=== PATIENT | female | born 1995 | race Caucasian/White ===

== ENCOUNTER 2021-06-28 23:33 | Emergency (ER) | payer MEDICAID, SELFPAY ==
[2021-06-29 00:06] VITALS: BP 106/70; PULSE 100; RESP 22; TEMP 36.8; O2SAT 98; BMI 23.9
[2021-06-29 00:58] VITALS: BP 98/68; PULSE 72; RESP 16; TEMP 37.2; O2SAT 98
--- NOTE | 2021-06-29 01:10 | ED.ANXIETY ---
HPI - Anxiety General Chief Complaint: Anxiety Stated Complaint: HAND AND FEET CRAMPING Time Seen by Provider: 06/29/21 01:05 Source: patient and family Mode of arrival: ambulatory Limitations: no limitations History of Present Illness HPI narrative: 25-year-old female came in for evaluation of hyperventilation, bilateral hand spasm. This is a 25-year-old female no known history of anxiety, came in for episode of being hyperventilated and anxious with spasm in both hands, patient Has been going through stressful event, sister attempt suicide, patient is , but patient declined any depression or suicidal or homicidal ideation. No hallucination. no history of anxiety. Related Data Allergies Allergy/AdvReac Type Severity Reaction Status Date / Time famotidine [From PEPCID] Allergy Intermediate DIFFICULTY Unverified 04/23/20 19:42 BREATHING Review of Systems Review of Systems: All other systems are reviewed and are negative Constitutional: Reports as per HPI and Reports no additional constitutional complaints Eyes: Reports as per HPI and Reports no additional eye complaints Reports system reviewed and no additional complaints, except as documented Cardiovascular: Reports as per HPI and Reports no additional cardiovascular complaints Respiratory: Reports as per HPI and Reports no additional respiratory complaints Gastrointestinal: Reports as per HPI and Reports no additional gastrointestinal complaints Genitourinary: Reports no additional female genitourinary complaints Musculoskeletal: Reports no additional musculoskeletal complaints Skin/Breast: Reports system reviewed and no additional complaints, except as docu Psychiatric: Reports no additional psychiatric complaints Endocrine: Reports no additional endocrine complaints Hematologic/Lymphatic: Reports no additional hematologic/lymphatic complaints Allergic/Immunologic: Reports no additional allergic/immunologic complaints Reports system reviewed and no additional complaints, except as documented and Reports Abnormal speech present [facility] Past Medical History Medical History No known health problems Social History Social History Advance Directives: No Advance Directives Information Provided: No Patient : No Physical Exam Vital Signs: Vital Signs: Last Vital Signs Temp 99.2 F 06/29/21 02:11 Pulse 79 06/29/21 02:11 Resp 13 06/29/21 02:11 BP 101/64 06/29/21 02:11 Pulse Ox 99 06/29/21 02:11 Body Mass Index 23.9 vital signs have been reviewed as appeared to be correct. Blood pressure normal. Heart rate normal. Respiration rate normal. Temperature normal. Oxygen saturation normal. Appearance: Alert. Oriented X3. No acute distress. Head: Normal external exam. Normocephalic. Atraumatic. No Newman signs noted. No raccoon eyes noted Eyes: PERRLA. EOMI. Conjunctiva and sclera normal. Eyelids normal. ENT: TM's Normal. Pharynx normal. Uvula midline. Moist mucous membranes. No trismus noted. No drooling noted. No muffled voice noted. Neck: Normal inspection. Neck supple. FROM. No adenopathy. Thyroid Normal. No meningeal signs. No neck mass noted. CVS: Normal heart rate and rhythm. Heart sound normal. No murmurs noted. Pulses normal throughout. Respiratory: No respiratory distress. Painless inspiration. Breath sounds normal. No wheezes/rales/rhonchi noted. Chest nontender. No accessory muscle usage noted or decreased air movement noted. Abdomen: Soft and nontender. Bowel sounds normal in all 4 quadrants. No distention noted. No organomegaly noted. No visible injury noted. Back: No CVA tenderness. Full range of motion noted. Skin: Skin warm and dry. Normal skin color. Normal skin turgor. No rashes/lesions/lacerations noted. Extremities: No lower extremity edema. Extremities exhibit normal range of motion. Extremities nontender. Neuro: Oriented X 3. Cranial nerve exam: II-XII are grossly intact No motor deficit. No sensory deficit. Reflexes normal. Course Course Course Narrative: assessment and plan. 25-year-old female came in for evaluation of upper extremities stiffness after. Of hyperventilation, however patient declined any anxiety or history of it. Patient was given Ativan and Benadryl, unremarkable labs, physical exam is normal, patient feels more relaxed, no more muscle stiffness. Patient did not give urine for . Stable vital signs. Was reassured and discharged home to follow-up with PCP. MDM - Anxiety Lab Data Attestation: I reviewed the patient's lab results. Result diagrams: 06/29/21 01:39 06/29/21 01:39 Labs: Lab Results 06/29/21 06/29/21 06/29/21 Range/Units 01:39 01:39 01:39 WBC 2.9 L (4.8-10.8) X10*3/uL RBC 4.56 (4.20-5.50) X10*6/uL Hgb 12.8 (12.0-16.0) g/dl Hct 38.0 (37.0-47.0) % MCV 83.3 (80.0-98.0) fL MCH 28.1 (27.0-33.0) pg MCHC 33.7 (31.0-35.0) g/dl RDW 14.1 (11.0-16.0) % Plt Count 169 (160-400) X10*3/uL MPV 10.1 (9.4-12.3) fL Immature Gran % (Auto) 0.0 (0.0-0.4) % Neut % (Auto) 61.9 (45-73) % Lymph % (Auto) 29.3 (20-40) % [place] % (Auto) 8.8 (2-11) % Eos % (Auto) 0.0 (0-4) % Baso % (Auto) 0.0 (0-2) % Lymph # (Auto) 0.9 L (1.2-4.9) X10*3/uL [place] # (Auto) 0.3 (0.1-1.2) X10*3/uL Eos # (Auto) 0.0 (0.0-0.4) X10*3/uL Baso # (Auto) 0.0 (0.0-0.2) X10*3/uL Abs Immat Gran (auto) 0.00 (0.00-0.03) X10*3/uL Absolute Neuts (auto) 1.8 L (2.0-8.3) x10*3/uL Absolute Nucleated RBC 0.000 (0.0-0.012) X10*3/uL Nucleated RBC % (auto) 0.0 (0.0-0.2) /100WBC Sodium 143 (135-145) mmol/L Potassium 3.4 (3.3-5.1) mmol/L Chloride 111 H (96-108) mmol/L Carbon Dioxide 21 L (22-29) mmol/L Anion Gap 14 (12-20) BUN 6 L (9-16) mg/dL Creatinine 0.70 (0.5-1.4) mg/dL Estim Creat Clear Calc 101.6 Estimated GFR > 60 Random Glucose 89 (60-115) mg/dL Calcium 8.7 (8.4-10.2) mg/dL Magnesium 2.1 (1.6-2.6) mg/dL Total Bilirubin 0.3 (0.0-1.0) mg/dL Direct Bilirubin 0.2 (0.0-0.5) mg/dL AST 44 H (5-31) U/L ALT 14 (0-31) U/L Alkaline Phosphatase 62 (39-117) U/L Total Creatine Kinase (26-140) U/L Troponin I High Sens < 3.5 (<3.5-17.0) ng/L Total Protein 6.9 (6.5-8.0) g/dL Albumin 4.2 (3.5-5.0) g/dL Lipase 21 (8-78) U/L // Range/Units 01:39 WBC (4.8-10.8) X10*3/uL RBC (4.20-5.50) X10*6/uL Hgb (12.0-16.0) g/dl Hct (37.0-47.0) % MCV (80.0-98.0) fL MCH (27.0-33.0) pg MCHC (31.0-35.0) g/dl RDW (11.0-16.0) % Plt Count (160-400) X10*3/uL MPV (9.4-12.3) fL Immature Gran % (Auto) (0.0-0.4) % Neut % (Auto) (45-73) % Lymph % (Auto) (20-40) % [place] % (Auto) (2-11) % Eos % (Auto) (0-4) % Baso % (Auto) (0-2) % Lymph # (Auto) (1.2-4.9) X10*3/uL [place] # (Auto) (0.1-1.2) X10*3/uL Eos # (Auto) (0.0-0.4) X10*3/uL Baso # (Auto) (0.0-0.2) X10*3/uL Abs Immat Gran (auto) (0.00-0.03) X10*3/uL Absolute Neuts (auto) (2.0-8.3) x10*3/uL Absolute Nucleated RBC (0.0-0.012) X10*3/uL Nucleated RBC % (auto) (0.0-0.2) /100WBC Sodium (135-145) mmol/L Potassium (3.3-5.1) mmol/L Chloride (96-108) mmol/L Carbon Dioxide (22-29) mmol/L Anion Gap (12-20) BUN (9-16) mg/dL Creatinine (0.5-1.4) mg/dL Estim Creat Clear Calc Estimated GFR Random Glucose (60-115) mg/dL Calcium (8.4-10.2) mg/dL Magnesium (1.6-2.6) mg/dL Total Bilirubin (0.0-1.0) mg/dL Direct Bilirubin (0.0-0.5) mg/dL AST (5-31) U/L ALT (0-31) U/L Alkaline Phosphatase (39-117) U/L Total Creatine Kinase 115 (26-140) U/L Troponin I High Sens (<3.5-17.0) ng/L Total Protein (6.5-8.0) g/dL Albumin (3.5-5.0) g/dL Lipase (8-78) U/L Discharge Plan Discharge Clinical Impression: Hyperventilation, Muscle stiffness Patient Disposition: Home, Self-Care Instructions: Hyperventilation (ED) Referrals: Physician,Unknown J [Primary Care Provider] - 2 days
[2021-06-29] MEDS: LORazepam 1 MG TABLET PO (01:24)
[2021-06-29] MEDS: diphenhydrAMINE HCL 25 MG TABLET PO (01:24)
[2021-06-29] MEDS: 0.9 % Sodium Chloride 1,000 ML 999 ML IVCONT (01:24)
[2021-06-29 01:44] LABS: MANUAL DIFF FLAG NO
[2021-06-29 01:49] LABS: Hemoglobin 12.8 g/dl (12.0-16.0); Lymphocytes Absolute Auto 0.9 X10*3/uL (1.2-4.9); Lymphocytes Percent Auto 29.3 % (20-40); Mean Corpuscular HGB Conc 33.7 g/dl (31.0-35.0); Mean Corpuscular Hemoglobin 28.1 pg (27.0-33.0); Mean Corpuscular Volume 83.3 fL (80.0-98.0); Mean Platelet Volume 10.1 fL (9.4-12.3); Monocytes Absolute Auto 0.3 X10*3/uL (0.1-1.2); Monocytes Percent Auto 8.8 % (2-11); Neutrophils Absolute Auto 1.8 x10*3/uL (2.0-8.3); Neutrophils Percent Auto 61.9 % (45-73); Platelet Count 169 X10*3/uL (160-400); Red Blood Count 4.56 X10*6/uL (4.20-5.50); Red Cell Distribution Width 14.1 % (11.0-16.0); White Blood Count 2.9 X10*3/uL (4.8-10.8)
[2021-06-29 02:06] LABS: Alanine Aminotransferase 14 U/L (0-31); Albumin Level 4.2 g/dL (3.5-5.0); Alkaline Phosphatase 62 U/L (39-117); Anion Gap 14 (12-20); Aspartate Amino Transferase 44 U/L (5-31); Bilirubin Direct 0.2 mg/dL (0.0-0.5); Bilirubin Total 0.3 mg/dL (0.0-1.0); Blood Urea Nitrogen 6 mg/dL (9-16); Calcium 8.7 mg/dL (8.4-10.2); Carbon Dioxide 21 mmol/L (22-29); Chloride 111 mmol/L (96-108); Creatinine Clr Calc Pharmacy 101.6; Estimated Glomerular Filt Rate > 60; Glucose Random 89 mg/dL (60-115); Lipase 21 U/L (8-78); Magnesium 2.1 mg/dL (1.6-2.6); Potassium 3.4 mmol/L (3.3-5.1); Sodium 143 mmol/L (135-145); Total Protein 6.9 g/dL (6.5-8.0)
[2021-06-29 02:07] LABS: Troponin-I High Sensitivity < 3.5 ng/L (<3.5-17.0)
[2021-06-29 02:11] VITALS: BP 101/64; PULSE 79; RESP 13; TEMP 37.3; O2SAT 99
== END 2021-06-29 04:01 | disposition home or self-care (01) ==
PROVIDERS: Emergency Provider Emergency Medicine
DX: R06.4 Hyperventilation (principal); M25.60 Stiffness of unspecified joint, not elsewhere classified; F41.1 Generalized anxiety disorder; F43.0 Acute stress reaction; Z79.899 Other long term (current) drug therapy
CPT/HCPCS: 36415; 80048; 80076; 82550; 83690; 83735; 84484; 85025; 96360; 99283; 99284; Q0163

== ENCOUNTER 2022-11-02 02:30 | Emergency (ER) | payer MEDICAID, SELFPAY ==
--- NOTE | 2022-11-02 | ECG_ITS ---
Test Reason : ABD PAIN Blood Pressure : / mmHG Vent. Rate : 088 BPM Atrial Rate : 088 BPM P-R Int : 156 ms QRS Dur : 090 ms QT Int : 404 ms P-R-T Axes : 078 071 047 degrees QTc Int : 488 ms Normal sinus rhythm Normal ECG When compared with ECG of 28-FEB-2019 06:21, Nonspecific T wave abnormality has replaced inverted T waves in Inferior leads Referred By: Maikol Ledezma Electronically Signed By:SARAY GOMEZ
[2022-11-02 02:54] VITALS: BP 122/76; PULSE 91; RESP 16; TEMP 36.5; O2SAT 99; BMI 23.7
--- NOTE | 2022-11-02 03:33 | ED.ABDPAIN ---
HPI - Abdominal Pain General Chief Complaint: Abdominal Pain Stated Complaint: Abd pain/Nausea/Diarrhea Time Seen by Provider: 11/02/22 03:20 Source: patient Mode of arrival: ambulatory Limitations: no limitations History of Present Illness HPI narrative: Patient with nausea and diarrhea for last 1 week having watery stool 5 to 7 times a day , with some amount of blood last 2 days noticed dark. stool watery patient not take any Pepto-Bismol no significant abdominal pain no history of any ulcer Related Data Previous Rx's Medication Instructions Recorded loperamide 2 mg tablet (Imodium 2 mg PO Q6H PRN loose stool #14 11/02/22 A-D) tabs ondansetron 4 mg disintegrating 4 mg PO Q6-8H PRN nausea and 11/02/22 tablet vomiting #7 tabs Allergies Allergy/AdvReac Type Severity Reaction Status Date / Time famotidine [From PEPCID] Allergy Intermediate DIFFICULTY Verified 11/02/22 02:59 BREATHING Review of Systems Review of Systems Yes all other systems are reviewed and are negative PMFSH Past Medical History Medical History No known health problems Social History Social History Advance Directives: No Advance Directives Information Provided: No Physical Exam ED Vital Signs: Vital Signs - 24 hr 11/02/22 02:54 Temperature 97.7 F Pulse Rate 91 Respiratory Rate 16 Blood Pressure 122/76 Pulse Oximetry 99 Oxygen Delivery Method Room Air BMI result Body Mass Index 23.7 Appearance: Alert. Oriented X3. No acute distress. Eyes: No pallor or icterus ENT: Pharynx normal. Oral Mucosa moist Neck: Normal inspection. Neck supple. CVS: Normal heart rate and rhythm. Pulses normal. Respiratory: No respiratory distress. Equal air entry bilateral, no wheezing/rales/rhonchi Abdomen: Soft and nontender. Bowel sounds are present, no mass palpable, no CVA tenderness Skin: Skin warm and dry. Normal skin color. Normal skin turgor. Extremities: No lower extremity edema. No calf tenderness Neuro: Oriented X 3. No motor deficit. Medical Decision Making Medical Decision Making MDM Narrative: Patient with acute gastroenteritis feeling much better after IV fluids Lab Data [facility] Lab Attestation statement: I reviewed the patient's lab results. 11/02/22 03:32 11/02/22 03:32 Labs: Lab Results 11/02/22 11/02/22 11/02/22 Range/Units 03:26 03:26 03:32 WBC 5.4 (4.8-10.8) X10*3/uL RBC 4.95 (4.20-5.50) X10*6/uL Hgb 13.9 (12.0-16.0) g/dl Hct 40.9 (37.0-47.0) % MCV 82.6 (80.0-98.0) fL MCH 28.1 (27.0-33.0) pg MCHC 34.0 (31.0-35.0) g/dl RDW 12.7 (11.0-16.0) % Plt Count 231 D (160-400) X10*3/uL MPV 9.3 L (9.4-12.3) fL Immature Gran % (Auto) 0.2 (0.0-0.4) % Neut % (Auto) 59.3 (45-73) % Lymph % (Auto) 30.6 (20-40) % [place] % (Auto) 8.4 (2-11) % Eos % (Auto) 1.1 (0-4) % Baso % (Auto) 0.4 (0-2) % Lymph # (Auto) 1.6 (1.2-4.9) X10*3/uL [place] # (Auto) 0.5 (0.1-1.2) X10*3/uL Eos # (Auto) 0.1 (0.0-0.4) X10*3/uL Baso # (Auto) 0.0 (0.0-0.2) X10*3/uL Abs Immat Gran (auto) 0.01 (0.00-0.03) X10*3/uL Absolute Neuts (auto) 3.2 (2.0-8.3) x10*3/uL Absolute Nucleated RBC 0.000 (0.0-0.012) X10*3/uL Nucleated RBC % (auto) 0.0 (0.0-0.2) /100WBC Sodium (135-145) mmol/L Potassium (3.3-5.1) mmol/L Chloride (96-108) mmol/L Carbon Dioxide (22-29) mmol/L Anion Gap (12-20) BUN (9-16) mg/dL Creatinine (0.5-1.4) mg/dL Estim Creat Clear Calc Estimated GFR Random Glucose (60-115) mg/dL Calcium (8.4-10.2) mg/dL Total Bilirubin (0.0-1.0) mg/dL AST (5-31) U/L ALT (0-31) U/L Alkaline Phosphatase (39-117) U/L Total Protein (6.5-8.0) g/dL Albumin (3.5-5.0) g/dL Lipase (8-78) U/L Urine Color Yellow Urine Appearance Clear Urine pH 6.5 (5.0-9.0) Ur Specific [place] <= 1.005 (1.005-1.025) Urine Protein Negative (Neg-Trace) mg/dL Urine Glucose (UA) Negative (Negative) mg/dL Urine Ketones Negative (Negative) mg/dL Urine Blood Trace H (Negative) Urine Nitrite Negative (Negative) Ur Leukocyte Esterase Small (1+) H (Negative) Urine RBC 0-2 (0-2) /HPF Urine WBC 6-10 H (0-5) /HPF Ur Squamous Epith Cells 0-2 (0-2) /HPF Urine Bacteria Trace (None Seen) Hyaline Casts 0-2 (0-2) /LPF Urine Test NEGATIVE (NEGATIVE) 11/02/22 Range/Units 03:32 WBC (4.8-10.8) X10*3/uL RBC (4.20-5.50) X10*6/uL Hgb (12.0-16.0) g/dl Hct (37.0-47.0) % MCV (80.0-98.0) fL MCH (27.0-33.0) pg MCHC (31.0-35.0) g/dl RDW (11.0-16.0) % Plt Count (160-400) X10*3/uL MPV (9.4-12.3) fL Immature Gran % (Auto) (0.0-0.4) % Neut % (Auto) (45-73) % Lymph % (Auto) (20-40) % [place] % (Auto) (2-11) % Eos % (Auto) (0-4) % Baso % (Auto) (0-2) % Lymph # (Auto) (1.2-4.9) X10*3/uL [place] # (Auto) (0.1-1.2) X10*3/uL Eos # (Auto) (0.0-0.4) X10*3/uL Baso # (Auto) (0.0-0.2) X10*3/uL Abs Immat Gran (auto) (0.00-0.03) X10*3/uL Absolute Neuts (auto) (2.0-8.3) x10*3/uL Absolute Nucleated RBC (0.0-0.012) X10*3/uL Nucleated RBC % (auto) (0.0-0.2) /100WBC Sodium 142 (135-145) mmol/L Potassium 3.3 (3.3-5.1) mmol/L Chloride 107 (96-108) mmol/L Carbon Dioxide 25 (22-29) mmol/L Anion Gap 13 (12-20) BUN 8 L (9-16) mg/dL Creatinine 0.70 (0.5-1.4) mg/dL Estim Creat Clear Calc 99.8 Estimated GFR > 60 Random Glucose 107 (60-115) mg/dL Calcium 9.5 D (8.4-10.2) mg/dL Total Bilirubin 0.3 (0.0-1.0) mg/dL AST 39 H (5-31) U/L ALT 13 (0-31) U/L Alkaline Phosphatase 58 (39-117) U/L Total Protein 6.9 (6.5-8.0) g/dL Albumin 4.2 (3.5-5.0) g/dL Lipase 30 (8-78) U/L Urine Color Urine Appearance Urine pH (5.0-9.0) Ur Specific [place] (1.005-1.025) Urine Protein (Neg-Trace) mg/dL Urine Glucose (UA) (Negative) mg/dL Urine Ketones (Negative) mg/dL Urine Blood (Negative) Urine Nitrite (Negative) Ur Leukocyte Esterase (Negative) Urine RBC (0-2) /HPF Urine WBC (0-5) /HPF Ur Squamous Epith Cells (0-2) /HPF Urine Bacteria (None Seen) Hyaline Casts (0-2) /LPF Urine Test (NEGATIVE) Medications Administered Discontinued Medications Generic Name Dose Route Start Last Admin Trade Name Freq PRN Reason Stop Dose Admin Dicyclomine HCl 20 mg 11/02/22 03:40 11/02/22 04:24 Dicyclomine Hcl 10 Mg Capsule PO 11/02/22 03:41 20 mg ONCE ONE Administration Sodium Chloride 1,000 mls @ 999 mls/hr 11/02/22 03:39 11/02/22 04:25 Ns IV 11/02/22 04:39 999 mls/hr .Q1H1M ONE Administration Loperamide HCl 2 mg 11/02/22 03:39 11/02/22 04:23 Loperamide Hcl 2 Mg Capsule PO 11/02/22 03:40 2 mg ONCE ONE Administration Ondansetron HCl 4 mg 11/02/22 03:39 11/02/22 04:19 Ondansetron Hcl 4 Mg/2 Ml Vial IVPUSH 11/02/22 03:40 4 mg ONCE ONE Administration Discharge Plan Discharge Clinical Impression: Gastroenteritis Patient Disposition: Home, Self-Care Instructions: Gastroenteritis (ED) Additional Instructions: Drink plenty of fluid Imodium and nausea medicine as prescribed Follow-up with PCP if not better Prescriptions: New loperamide [Imodium A-D] 2 mg tablet 2 mg PO Q6H PRN (Reason: loose stool) Qty: 14 0RF ondansetron 4 mg tablet,disintegrating 4 mg PO Q6-8H PRN (Reason: nausea and vomiting) Qty: 7 0RF
[2022-11-02 03:37] LABS: Basophils Percent Auto 0.4 % (0-2); Eosinophils Absolute Auto 0.1 X10*3/uL (0.0-0.4); Eosinophils Percent Auto 1.1 % (0-4); Hematocrit 40.9 % (37.0-47.0); Hemoglobin 13.9 g/dl (12.0-16.0); Imm Gran Abs Auto 0.01 X10*3/uL (0.00-0.03); Imm Gran Pct Auto 0.2 % (0.0-0.4); Lymphocytes Absolute Auto 1.6 X10*3/uL (1.2-4.9); Lymphocytes Percent Auto 30.6 % (20-40); MANUAL DIFF FLAG NO; Mean Corpuscular Hemoglobin 28.1 pg (27.0-33.0); Mean Corpuscular Volume 82.6 fL (80.0-98.0); Mean Platelet Volume 9.3 fL (9.4-12.3); Monocytes Absolute Auto 0.5 X10*3/uL (0.1-1.2); Monocytes Percent Auto 8.4 % (2-11); Neutrophils Absolute Auto 3.2 x10*3/uL (2.0-8.3); Neutrophils Percent Auto 59.3 % (45-73); Platelet Count 231 X10*3/uL (160-400); Red Blood Count 4.95 X10*6/uL (4.20-5.50); Red Cell Distribution Width 12.7 % (11.0-16.0); White Blood Count 5.4 X10*3/uL (4.8-10.8)
[2022-11-02 03:43] LABS: Appearance Urine Clear; Color Urine Yellow; Glucose Urine UA Negative (Negative); Leukocyte Esterase Urine Small (1+) (Negative); Nitrite Urine Negative (Negative); PH 6.5 (5.0-9.0); Specific Gravity - Urine <= 1.005 (1.005-1.025); UMIC TRIGGER UACC YES; Urine Blood Trace (Negative); Urine Ketones Negative (Negative); Urine Protein Negative (Neg-Trace)
[2022-11-02 03:44] LABS: UPreg QC Valid YES; Urine Pregnancy NEGATIVE (NEGATIVE)
[2022-11-02 03:50] LABS: Bacteria Urine Trace (None Seen); Hyaline Casts Urine 0-2 /LPF (0-2); RBC Urine 0-2 /HPF (0-2); Squamous Epithelial Cell Urine 0-2 /HPF (0-2); UACC Culture Trigger YES
[2022-11-02 03:55] LABS: Alanine Aminotransferase 13 U/L (0-31); Albumin Level 4.2 g/dL (3.5-5.0); Alkaline Phosphatase 58 U/L (39-117); Anion Gap 13 (12-20); Aspartate Amino Transferase 39 U/L (5-31); Bilirubin Total 0.3 mg/dL (0.0-1.0); Blood Urea Nitrogen 8 mg/dL (9-16); Calcium 9.5 mg/dL (8.4-10.2); Carbon Dioxide 25 mmol/L (22-29); Chloride 107 mmol/L (96-108); Creatinine Clr Calc Pharmacy 99.8; Estimated Glomerular Filt Rate > 60; Glucose Random 107 mg/dL (60-115); Lipase 30 U/L (8-78); Potassium 3.3 mmol/L (3.3-5.1); Sodium 142 mmol/L (135-145); Total Protein 6.9 g/dL (6.5-8.0)
[2022-11-02] MEDS: ondansetron HCL 4 MG/2 ML VIAL IVPUSH (04:19)
[2022-11-02] MEDS: Loperamide HCl 2 MG CAPSULE PO (04:23)
[2022-11-02] MEDS: Dicyclomine HCl 10 MG CAPSULE 20 MG PO (04:24)
[2022-11-02] MEDS: 0.9 % Sodium Chloride 1,000 ML 999 ML IV (04:25)
[2022-11-02 05:32] VITALS: BP 112/69; PULSE 78; RESP 17; TEMP 36.7; O2SAT 100
--- NOTE | 2022-11-02 05:53 | PC.NURSE ---
Pt A&Ox4, reports 6/10 intermittent upper ABD pain and diarrhea x 1 week, denies any sick contact or recent abx use. Non-tender to touch, + bowel sounds x 4. Last BM was prior to arrival. IV line placed, meds given as documented. Pt ambulatory with steady gait.
[2022-11-02 05:56] LABS: COVID-19 Test Negative (Negative); IDNOW Serial# BCCEAD1C
== END 2022-11-02 05:56 | disposition home or self-care (01) ==
PROVIDERS: Emergency Provider Internal Medicine
DX: K52.9 Noninfective gastroenteritis and colitis, unspecified (principal); Z20.822 Contact with and (suspected) exposure to COVID-19; Z20.828 Contact with and (suspected) exposure to other viral communicable diseases; Z79.899 Other long term (current) drug therapy
CPT/HCPCS: 36415; 80053; 81001; 81025; 83690; 85025; 87086; 87635; 93005; 96361; 96374; 99285; J2405

== ENCOUNTER 2024-11-27 05:19 | Emergency (ER) | payer OTHER, SELFPAY ==
--- NOTE | ~2024-11-27 | XR_ITS ---
CLINICAL HISTORY: dizzy, heart racing 1 view chest x-ray Comparison: None Findings: No consolidation or effusion. Normal size heart. No acute fracture. IMPRESSION: 1. No acute findings. This document has been electronically signed by: John Almaguer MD on 11/27/2024 06:29:42
[2024-11-27 05:23] VITALS: BP 105/57; PULSE 95; RESP 16; TEMP 36.5; O2SAT 97; BMI 26.8
--- NOTE | 2024-11-27 05:28 | ECG_ITS ---
Test Reason : CHEST PAIN Blood Pressure : */* mmHG Vent. Rate : 95 BPM Atrial Rate : 95 BPM P-R Int : 152 ms QRS Dur : 98 ms QT Int : 376 ms P-R-T Axes : 80 74 -25 degrees QTcB Int : 472 ms Normal sinus rhythm Cannot rule out Inferior infarct , age undetermined T wave abnormality, consider anterolateral ischemia Abnormal ECG When compared with ECG of 02-Nov-2022 04:32, T wave inversion now evident in Inferior leads T wave inversion now evident in Anterolateral leads Referred By: Generic ED Physician Electronically Signed By: SARAY GOMEZ
[2024-11-27 05:35] VITALS: BP 107/62; PULSE 91; RESP 19; TEMP 36.8; O2SAT 96
[2024-11-27 05:46] LABS: MANUAL DIFF FLAG NO
[2024-11-27 05:47] LABS: Basophils Percent Auto 0.2 % (0-2); Eosinophils Absolute Auto 0.1 X10*3/uL (0.0-0.4); Eosinophils Percent Auto 0.5 % (0-4); Hematocrit 41.8 % (37.0-47.0); Hemoglobin 13.9 g/dl (12.0-16.0); Imm Gran Abs Auto 0.02 X10*3/uL (0.00-0.03); Imm Gran Pct Auto 0.2 % (0.0-0.4); Lymphocytes Percent Auto 9.9 % (20-40); Mean Corpuscular HGB Conc 33.3 g/dl (31.0-35.0); Mean Corpuscular Hemoglobin 28.5 pg (27.0-33.0); Mean Corpuscular Volume 85.7 fL (80.0-98.0); Mean Platelet Volume 9.6 fL (9.4-12.3); Monocytes Absolute Auto 0.2 X10*3/uL (0.1-1.2); Monocytes Percent Auto 2.3 % (2-11); Neutrophils Absolute Auto 8.5 x10*3/uL (2.0-8.3); Neutrophils Percent Auto 86.9 % (45-73); Platelet Count 254 X10*3/uL (160-400); Red Blood Count 4.88 X10*6/uL (4.20-5.50); Red Cell Distribution Width 12.8 % (11.0-16.0); White Blood Count 9.8 X10*3/uL (4.8-10.8)
[2024-11-27 05:59] LABS: Anion Gap 20 (12-20); Blood Urea Nitrogen 14 mg/dL (9-16); Calcium 9.2 mg/dL (8.4-10.2); Carbon Dioxide 16 mmol/L (22-29); Chloride 106 mmol/L (96-108); Creatinine Clr Calc Pharmacy 111.8; Estimated Glomerular Filt Rate > 60; Glucose Random 93 mg/dL (60-115); Potassium 3.5 mmol/L (3.3-5.1); Sodium 138 mmol/L (135-145)
[2024-11-27 06:09] LABS: Troponin-I High Sensitivity < 2.7 ng/L (<3.5-17.0)
--- NOTE | 2024-11-27 07:21 | ED_ITS ---
HPI - General Adult General Chief complaint: Arrhythmia/Palpitations Stated complaint: nauseous/faint Time Seen by Provider: 11/27/24 07:20 History of Present Illness ED Provider: Elham VELA narrative: The patient is a 29-year-old female who is generally in good health. She is on no medications. She has an 8-month-old child that she is . She had an uncomplicated vaginal delivery 8 months ago. She was feeling well yesterday. She says that she woke up this morning at approximately 4 AM with a sense of her heart racing and palpitations. She also felt dizzy and nauseated and possibly dehydrated. She had a dry mouth. She drank some water and at 1st thought she was starting to feel somewhat better but then her symptoms returned and her brought her to the hospital. She was feeling fine yesterday. She is feeling somewhat better at the time that I am seeing her. Related Data Previous Rx's ?Medication ?Instructions ?Recorded loperamide 2 mg tablet (Imodium 2 mg PO Q6H PRN loose stool #14 11/02/22 A-D) tabs ondansetron 4 mg disintegrating 4 mg PO Q6-8H PRN nausea and 11/02/22 tablet vomiting #7 tabs Allergies Allergy/AdvReac Type Severity Reaction Status Date / Time famotidine [From PEPCID] Allergy Intermediate DIFFICULTY Verified 11/27/24 05:25 BREATHING Review of Systems 2 Review of Systems: Yes all other systems are reviewed and are negative [facility] Past Medical History Medical History No known health problems Social History Social History Alcohol intake: never Smoked in Last 30 Days: No Use of substances other than those prescribed or required for medical reasons: No Advance Directives: No Do you have a plan to hurt others: No Plan Patient : No Physical Exam ED Vital Signs: Vital Signs - 24 hr 11/27/24 05:23 11/27/24 05:35 11/27/24 10:55 Temperature 97.7 F 98.2 F 98.2 F Pulse Rate 95 91 84 Respiratory Rate 16 19 18 Blood Pressure 105/57 L 107/62 105/70 Pulse Oximetry 97 96 98 Oxygen Delivery Method Room Air Room Air Room Air BMI result Body Mass Index 26.8 Const Other: The patient was awake, alert, pleasant, cooperative. She does not appear in obvious distress. Orientation/consciousness: patient oriented x3 HENMT Other: Face is symmetrical, mucous membranes moist. Eyes General: appearance normal, both eyes and all related structures Pupils: Equal, round and reactive pupils present EOM: EOMs intact bilaterally Neck Neck: Yes normal visual inspection, Yes full ROM, Yes no lymphadenopathy and Yes no JVD Resp Effort & Inspection: normal respiratory effort Auscultation: clear to auscultation bilaterally Cardio Rate: regular rate Rhythm: regular rhythm Heart sounds: S1 normal heart sound present and S2 normal heart sound present GI Other: Abdomen is soft and nontender Skin Other: Skin is pale and dry Neuro General: patient oriented x3, gait normal, tone normal, moves all extremities, no focal motor deficits and CN's II-XI intact bilaterally Cranial nerves: Yes Equal, round and reactive pupils present Extrem General: Yes no pedal edema and Yes no calf tenderness Medications Administered Discontinued Medications Generic Name Dose Route Start Last Admin Trade Name Freq PRN Reason Stop Dose Admin Sodium Chloride 1,000 mls @ 999 mls/hr 11/27/24 07:45 11/27/24 08:48 Ns IV 11/27/24 08:45 Infused .Q1H1M KARIN Infusion Medical Decision Making Medical Decision Making [facility] Narrative: The patient is an ordinarily healthy 29-year-old female who had abrupt onset of symptoms early this morning. The symptoms included a sense of her heart racing, palpitations, dizziness, nausea, dry mouth, weakness, and fatigue. She also had some bilateral hand numbness during the episode. She is currently . She had an uneventful vaginal delivery 8 months ago. Clinically the patient was doing better spontaneously. An EKG was done that shows some nonspecific ST and T-wave changes. However troponins are normal and a D-dimer is normal. Additionally her chest x-ray is normal. Her white count is normal with a white count of 9.8. 86.9% neutrophils. Chemistries show a carbon dioxide of 16. Normal renal function. The patient was given 1 L of normal saline. She was observed. She had no recurrence of her symptoms. She seemed to be feeling better. I was somewhat surprised that she had a carbon dioxide of 16 and that she had a lot of ketones in her urine but given that she looks quite well, her symptoms had entirely resolved, and her vital signs were quite unremarkable I felt that she was appropriate for discharge for further observation at home. She should return if worse. Lab Data 11/27/24 05:41 11/27/24 05:41 Labs: Lab Results 11/27/24 11/27/24 11/27/24 Range/Units 05:41 07:29 09:23 WBC 9.8 (4.8-10.8) X10*3/uL RBC 4.88 (4.20-5.50) X10*6/uL Hgb 13.9 (12.0-16.0) g/dl Hct 41.8 (37.0-47.0) % MCV 85.7 (80.0-98.0) fL MCH 28.5 (27.0-33.0) pg MCHC 33.3 (31.0-35.0) g/dl RDW 12.8 (11.0-16.0) % Plt Count 254 (160-400) X10*3/uL MPV 9.6 (9.4-12.3) fL Immature Gran % (Auto) 0.2 (0.0-0.4) % Neut % (Auto) 86.9 H (45-73) % Lymph % (Auto) 9.9 L (20-40) % [place] % (Auto) 2.3 (2-11) % Eos % (Auto) 0.5 (0-4) % Baso % (Auto) 0.2 (0-2) % Lymph # (Auto) 1.0 L (1.2-4.9) X10*3/uL [place] # (Auto) 0.2 (0.1-1.2) X10*3/uL Eos # (Auto) 0.1 (0.0-0.4) X10*3/uL Baso # (Auto) 0.0 (0.0-0.2) X10*3/uL Abs Immat Gran (auto) 0.02 (0.00-0.03) X10*3/uL Absolute Neuts (auto) 8.5 H (2.0-8.3) x10*3/uL Absolute Nucleated RBC 0.000 (0.0-0.012) X10*3/uL Nucleated RBC % (auto) 0.0 (0.0-0.2) /100WBC D-Dimer High Sensitivty Cancelled Sodium 138 (135-145) mmol/L Potassium 3.5 (3.3-5.1) mmol/L Chloride 106 (96-108) mmol/L Carbon Dioxide 16 L (22-29) mmol/L Anion Gap 20 (12-20) BUN 14 (9-16) mg/dL Creatinine 0.69 (0.5-1.4) mg/dL Estim Creat Clear Calc 111.8 Estimated GFR > 60 Random Glucose 93 (60-115) mg/dL Calcium 9.2 (8.4-10.2) mg/dL Magnesium 2.0 (1.6-2.6) mg/dL Total Bilirubin 1.1 H (0.0-1.0) mg/dL Direct Bilirubin 0.3 (0.0-0.5) mg/dL AST 53 H (5-31) U/L ALT 17 (0-31) U/L Alkaline Phosphatase 76 (39-117) U/L Troponin I High Sens < 2.7 < 2.7 (<3.5-17.0) ng/L Total Protein 7.6 (6.5-8.0) g/dL Albumin 4.6 (3.5-5.0) g/dL Urine Color Yellow Urine Appearance Clear Urine pH 5.5 (5.0-9.0) Ur Specific [place] 1.015 (1.005-1.025) Urine Protein Negative (Neg-Trace) mg/dL Urine Glucose (UA) Negative (Negative) mg/dL Urine Ketones >=160 (Negative) mg/dL Urine Blood Negative (Negative) Urine Nitrite Negative (Negative) Ur Leukocyte Esterase Negative (Negative) Urine Test NEGATIVE (NEGATIVE) 11/27/24 Range/Units 09:33 WBC (4.8-10.8) X10*3/uL RBC (4.20-5.50) X10*6/uL Hgb (12.0-16.0) g/dl Hct (37.0-47.0) % MCV (80.0-98.0) fL MCH (27.0-33.0) pg MCHC (31.0-35.0) g/dl RDW (11.0-16.0) % Plt Count (160-400) X10*3/uL MPV (9.4-12.3) fL Immature Gran % (Auto) (0.0-0.4) % Neut % (Auto) (45-73) % Lymph % (Auto) (20-40) % [place] % (Auto) (2-11) % Eos % (Auto) (0-4) % Baso % (Auto) (0-2) % Lymph # (Auto) (1.2-4.9) X10*3/uL [place] # (Auto) (0.1-1.2) X10*3/uL Eos # (Auto) (0.0-0.4) X10*3/uL Baso # (Auto) (0.0-0.2) X10*3/uL Abs Immat Gran (auto) (0.00-0.03) X10*3/uL Absolute Neuts (auto) (2.0-8.3) x10*3/uL Absolute Nucleated RBC (0.0-0.012) X10*3/uL Nucleated RBC % (auto) (0.0-0.2) /100WBC D-Dimer High Sensitivty < 150 Sodium (135-145) mmol/L Potassium (3.3-5.1) mmol/L Chloride (96-108) mmol/L Carbon Dioxide (22-29) mmol/L Anion Gap (12-20) BUN (9-16) mg/dL Creatinine (0.5-1.4) mg/dL Estim Creat Clear Calc Estimated GFR Random Glucose (60-115) mg/dL Calcium (8.4-10.2) mg/dL Magnesium (1.6-2.6) mg/dL Total Bilirubin (0.0-1.0) mg/dL Direct Bilirubin (0.0-0.5) mg/dL AST (5-31) U/L ALT (0-31) U/L Alkaline Phosphatase (39-117) U/L Troponin I High Sens < 2.7 (<3.5-17.0) ng/L Total Protein (6.5-8.0) g/dL Albumin (3.5-5.0) g/dL Urine Color Urine Appearance Urine pH (5.0-9.0) Ur Specific [place] (1.005-1.025) Urine Protein (Neg-Trace) mg/dL Urine Glucose (UA) (Negative) mg/dL Urine Ketones (Negative) mg/dL Urine Blood (Negative) Urine Nitrite (Negative) Ur Leukocyte Esterase (Negative) Urine Test (NEGATIVE) Discharge Plan Discharge Clinical Impression: Palpitations Patient Disposition: Home, Self-Care Additional Instructions: I am not certain exactly what was the cause of your symptoms early this morning but your testing in the emergency room is very reassuring. You may go about your normal activities. Please contact your regular doctor's office for a follow up appointment in the next couple of weeks. Return to the emergency room if you feel significantly worse. Prescriptions: No Action loperamide [Imodium A-D] 2 mg tablet 2 mg PO Q6H PRN (Reason: loose stool) Qty: 14 0RF ondansetron 4 mg tablet,disintegrating 4 mg PO Q6-8H PRN (Reason: nausea and vomiting) Qty: 7 0RF Referrals: Neelima Lester FNP [Primary Care Provider] - (episode of palpitations) Interventions: ED Discharge Assessment Last Done: 11/27/24 10:55 Discharge Date/Time: 11/27/24 10:55 Print Language: [place]
--- NOTE | 2024-11-27 07:32 | PC.NURSE ---
Pt ambulatory to restroom, states feeling better, urine sample collected.
[2024-11-27 07:39] LABS: Appearance Urine Clear; Color Urine Yellow; Glucose Urine UA Negative (Negative); Leukocyte Esterase Urine Negative (Negative); Nitrite Urine Negative (Negative); PH 5.5 (5.0-9.0); Specific Gravity - Urine 1.015 (1.005-1.025); Urine Blood Negative (Negative); Urine Ketones >=160 mg/dL (Negative); Urine Protein Negative (Neg-Trace)
[2024-11-27 07:41] LABS: UPreg QC Valid YES; Urine Pregnancy NEGATIVE (NEGATIVE)
[2024-11-27] MEDS: 0.9 % Sodium Chloride 1,000 ML 999 ML IV (07:41)
[2024-11-27 08:13] LABS: Alanine Aminotransferase 17 U/L (0-31); Albumin Level 4.6 g/dL (3.5-5.0); Alkaline Phosphatase 76 U/L (39-117); Aspartate Amino Transferase 53 U/L (5-31); Bilirubin Direct 0.3 mg/dL (0.0-0.5); Bilirubin Total 1.1 mg/dL (0.0-1.0); Total Protein 7.6 g/dL (6.5-8.0)
[2024-11-27 09:54] LABS: Troponin-I High Sensitivity < 2.7 ng/L (<3.5-17.0)
[2024-11-27 10:19] LABS: D Dimer High Sensitivity < 150 NG/ML
[2024-11-27 10:26] LABS: Troponin-I High Sensitivity < 2.7 ng/L (<3.5-17.0)
[2024-11-27 10:55] VITALS: BP 105/70; PULSE 84; RESP 18; TEMP 36.8; O2SAT 98
== END 2024-11-27 10:55 | disposition home or self-care (01) ==
PROVIDERS: Emergency Provider Emergency Medicine; PCP Nurse Practitioner Family
DX: R00.2 Palpitations (principal); R07.9 Chest pain, unspecified; R42 Dizziness and giddiness
CPT/HCPCS: 36415; 71045; 80048; 80076; 81003; 81025; 83735; 84484; 85025; 85379; 93005; 96360; 99284; 99285

== ENCOUNTER → 2024-11-27 05:28 | Outpatient (BNV) | payer OTHER, SELFPAY | PROVIDERS: PCP Nurse Practitioner Family; Visit Provider Radiology Diagnostic Radiology | DX: R42 Dizziness and giddiness (principal); R00.2 Palpitations | CPT/HCPCS: 71045 ==

== ENCOUNTER → 2024-11-27 05:28 | Outpatient (BNV) | payer OTHER, SELFPAY | PROVIDERS: Emergency Provider Emergency Medicine; PCP Nurse Practitioner Family; Visit Provider Internal Medicine | DX: R07.9 Chest pain, unspecified (principal) | CPT/HCPCS: 93010 ==

== ENCOUNTER 2025-04-02 18:05 | Emergency (ER) | payer OTHER, SELFPAY ==
--- NOTE | ~2025-04-02 | XR_ITS ---
CLINICAL HISTORY: fifth toe pain, ?dislocated 4 view left foot Comparison: None provided Findings: No fractures or dislocations. No significant arthritic change or erosions. No ankle effusion. No radiopaque foreign body. IMPRESSION: 1. No acute findings. This document has been electronically signed by: Kimmie Weaver MD on 04/02/2025 19:47:21
--- OUTSIDE RECORDS SUMMARY | 2025-04-02 15:30 | XMS_ITS | Encounter Summary ---
Author Organization [facility] Address [address] [place] [phone] Phone Care Team Providers Care Mortgage Analyst Name Role Phone Pcp, Unknown Primary Care Provider Unavailabl e Reason for Visit * Reason Comments Foot Injury Pt presents for eval of L foot pain s/p jamming great toe into stroller. Encounter Details Date Type Department Care Team (Late st Contact Info) Description 04/02/2025 3:30 PM EDT Office Visit [facility] [address] [id number] Hollie Trevino, CITY PLANNER [address] [place] [phone] [email or web address] Left foot pain (Primary Dx); Toe dislocation, left, initial encounter Social History Tobacco Use Types Packs/Day Years [...] on file documented as of this encounter Last Filed Vital Signs Vital Sign Reading Time Taken Comments Blood Pressure 110/63 04/02/2025 3:33 PM EDT Pulse 68 04/02/2025 3:33 PM EDT Temperature 36.3 C (97.3 F) 04/02/2025 3:33 PM EDT Respiratory Rate 16 04/02/2025 3:33 PM EDT Oxygen Saturation 99% 04/02/2025 3:33 PM EDT Inhaled Oxygen Concentration - - Weight - - Height - - Body Mass Index - - documented in this encounter Patient Instructions * Patient Instructions* Hollie Trevino CNP - 04/02/2025 3:30 PM EDT Unfortunately-in the office today you are much too uncomfortable for any intervention You can katlin tape the toe to the next toe and if you note that the pain is decreasing no further intervention is necessary, if you are unable to you may follow-up at the [facility] walk-in orthopedic clinic-see the pamphlet provided Rest, elevate the foot, apply ice and take [id number] ibuprofen We have provided an orthopedic shoe you should use this shoe for 7 to 10 days * Attachments The following attachments cannot be sent through Care Everywhere. * Dislocation: Toe (Citizen Of [place]) documented in this encounter Progress Notes * Hollie Trevino CNP - 04/02/2025 3:30 PM EDT Images from the original note were not included. Subjective: Patient ID: Tressa Godoy is a 29 y.o. female. 29-year-old female presents with pain on the top of the left foot into the 3rd, 4th and 5th toes. Patient states last evening she was wearing sandals and jammed the last 3 toes into the wheel of stroller. Patient states she tried ice and rest but she awoke this morning and notes that the pain is throbbing and when she walks the pain goes up into the calf. She has not noticed any bruising or skin changes. Review of Systems Constitutional: Negative for chills, diaphoresis and fever. Respiratory: Negative for cough and shortness of breath. Cardiovascular: Negative for chest pain. Allergic/Immunologic: Negative for immunocompromised state. Skin: Negative for pallor, persistent rash and wound. Musculoskeletal: Positive for joint pain (top left foot & 3rd-5th toes). Negative for joint swelling and myalgias. Gait problem: painful left foot to calf. Vitals: 04/02/25 1533 BP: 110/63 Pulse: 68 Resp: 16 Temp: 36.3 ??C (97.3 ??F) TempSrc: Temporal SpO2: 99% Objective: Physical Exam Vitals and nursing note reviewed. Constitutional: General: She is not in acute distress. Appearance: Normal appearance. She is normal weight. She is not ill-appearing, toxic-appearing or diaphoretic. HENT: Head: Normocephalic and atraumatic. Pulmonary: Effort: Pulmonary effort is normal. Musculoskeletal: General: Normal range of motion. Right lower leg: No edema. Left lower leg: No edema. Comments: Left calf soft No peripheral edema Full ankle range of motion, Achilles nontender and intact Positive pedal pulses Tenderness to any palpation 3rd and 4th 7 5th toes and top of left foot over the 3rd through 5th metatarsals Skin: General: Skin is warm and dry. Capillary Refill: Capillary refill takes less than 2 seconds. Findings: No bruising or erythema. Comments: No penetrating injuries, abrasions or bruising noted over left foot, ankle Neurological: General: No focal deficit present. Mental Status: She is alert and oriented to person, place, and time. Psychiatric: Mood and Affect: Mood normal. Behavior: Behavior normal. No results found for this visit on 04/02/25. Procedure: Procedures Assessment/Plan: Diagnosis Plan 1. Left foot pain XR Foot (Left) 2. Toe dislocation, left, initial encounter Assessment and Plan: 29-year-old female with no specific past medical history presents with left toe and foot pain. Yesterday she jammed the 3rd, 4th and 5th toes on large wheel of stroller Break in the skin, no bruising or abrasions Patient elevated the foot and has persistent discomfort and throbbing today Limb is neurovascularly intact Full ankle range of motion X-ray obtained and there is slight dislocation of the tuft of the left pinky toe Katlin taped and orthopedic shoe applied Patient is aware if pain persists may seek follow-up care at the walk-in [facility] Ortho clinic documented in this encounter Plan of Treatment Not on file documented as of this encounter Procedures Procedure Name Priority Date/Time Associated Diagnosis Comments XR FOOT 3 OR MORE VIEWS (LEFT) Urgent/patient waiting 04/02/2025 3:50 PM EDT Left foot pain documented in this encounter Results * XR FOOT 3 OR MORE VIEWS (LEFT) (04/02/2025 3:50 PM EDT) Anatomical Region Laterality Modality Foot Left Computed Radiogr aphy 04/02/2025 4:21 PM EDT Impressions 04/02/2025 4:23 PM EDT FINDINGS/IMPRESSION: No acute displaced fracture or dislocation. Joint spaces are grossly maintained. Alignments are grossly maintained. The soft tissues are unremarkable. Narrative 04/02/2025 4:23 PM EDT Procedure: XR FOOT 3 OR MORE VIEWS (LEFT) Referring clinician's provided indication for this examination in [facility]: 29 years Female presenting with Trauma; Jammed 3rd, 4th and 5th toes into stroller last evening, pain in the toes as well as on top of foot Comparison: None Procedure Note See Fernandez MD - 04/02/2025 Procedure: XR FOOT 3 OR MORE VIEWS (LEFT) Referring clinician's provided indication for this examination in [facility]: 29years Female presenting with Trauma; Jammed 3rd, 4th and 5th toes intostroller last evening, pain in the toes as well as on top of foot Comparison: None IMPRESSION: FINDINGS/IMPRESSION: No acute displaced fracture or dislocation. Joint spaces are grossly maintained. Alignments are grossly maintained. The soft tissues are unremarkable. us Hollie Trevino CITY PLANNER IMG XR LOWER EXTREMITY Florecita l Result documented in this encounter Visit Diagnoses Diagnosis Left foot pain- Primary Pain in soft tissues of limb Toe dislocation, left, initial encounter documented in this encounter Care Teams Mortgage Analyst Relationship Specialty Start Date End Date Pcp, Unknown PCP - General 04/02/25 documented as of this encounter Additional Source Comments The information contained in this document represents components of the legal health record. It is not the complete legal health record.[facility]
--- OUTSIDE RECORDS SUMMARY | 2025-04-02 15:44 | XMS_ITS | Encounter Summary ---
Author Organization [facility] Address [address] [place] [phone] Phone Care Team Providers Care Bar Captain Name Role Phone Pcp, Unknown Primary Care Provider Unavailabl e Encounter Details Date Type Department Care Team (Late st Contact Info) Description 04/02/2025 3:44 PM EDT Hospital Encounter [facility] [address] [place] [phone] Hollie Trevino CNP [address] [place] [address] Arrived Social History Tobacco Use Types Packs/Day Years [...] clinician's provided indication for this examination in [facility]: 29 years Female presenting with Trauma; Jammed 3rd, 4th and 5th toes into stroller last evening, pain in the toes as well as on top of foot Comparison: None Procedure Note See Fernandez MD - 04/02/2025 Procedure: XR FOOT 3 OR MORE VIEWS (LEFT) Referring clinician's provided indication for this examination in [facility]: 29years Female presenting with Trauma; Jammed 3rd, 4th and 5th toes intostroller last evening, pain in the toes as well as on top of foot Comparison: None IMPRESSION: FINDINGS/IMPRESSION: No acute displaced fracture or dislocation. Joint spaces are grossly maintained. Alignments are grossly maintained. The soft tissues are unremarkable. Hollie Trevino EMERGENCY ROOM ORDERLY IMG XR LOWER EXTREMITY Florecita l Result documented in this encounter Visit Diagnoses Not on filedocumented in this encounter Care Teams Bar Captain Relationship Specialty Start Date End Date Pcp, Unknown PCP - General 04/02/25 documented as of this encounter Additional Source Comments The information contained in this document represents components of the legal health record. It is not the complete legal health record.[facility]
[2025-04-02 18:57] VITALS: BP 100/70; PULSE 84; RESP 18; TEMP 36.8; O2SAT 99; BMI 26.7
--- NOTE | 2025-04-02 18:57 | ED_ITS ---
HPI - Extremity Injury (Lower) General Chief Complaint: Extremity Injury, Lower Stated Complaint: dislocated toe lt foot Time Seen by Provider: 04/02/25 20:06 Source: patient and RN notes reviewed Mode of arrival: ambulatory Limitations: no limitations History of Present Illness ED Provider: Bela Guzman PA-C HPI Narrative: This is a 29-year-old female who presents emergency department with complaints of left 5th toe pain after stubbing it last night. She went to an urgent care where she had x-rays performed and was told it was dislocated. She was told to follow-up with the orthopedist however states that she call the orthopedics and they do not accept her health insurance. She has been taking ibuprofen and Tylenol for pain with some relief. She was given a postop shoe and was told to katlin tape her toe. No other complaints or concerns at this time. Type of Injury: blunt Place: home Relieving factors: NSAID, cold therapy and immobilization Exacerbating factors: weight bearing, movement and palpation Context: direct blow Other symptoms: none Related Data Previous Rx's ?Medication ?Instructions ?Recorded loperamide 2 mg tablet (Imodium 2 mg PO Q6H PRN loose stool #14 11/02/22 A-D) tabs ondansetron 4 mg disintegrating 4 mg PO Q6-8H PRN naus ea and 11/02/22 tablet vomiting #7 tabs Allergies Allergy/AdvReac Type Severity Reaction Status Date / Time famotidine (From PEPCID) Allergy Intermediate DIFFICULTY Verified 04/02/25 18:58 BREATHING PMFSH Past Medical History Attestation statement: The following information was validated with the patient. Medical History No known health problems Social History Social History Alcohol intake: never Advance Directives: No Advance Directives Information Provided: Yes Do you have a plan to hurt others: No Plan Physical Exam Exam: Exam: General: Awake, alert, and oriented X3. No acute distress. HEENT: Normal inspection CVS: Normal heart rate and rhythm. Pulses normal. Respiratory: No respiratory distress Skin: Warm, dry, no rashes noted to exposed skin. Normal skin color. Normal skin turgor. Extremities: Left small toe with diffuse tenderness throughout, no ecchymosis, no obvious bony deformity or swelling. Neuro: Oriented X 3. No motor deficit. No sensory deficit. Vital Signs: Vital Signs: Last Vital Signs Temp 98.3 F 04/02/25 20:28 Pulse 84 04/02/25 20:28 Resp 18 04/02/25 20:28 BP 100/70 04/02/25 20:28 Pulse Ox 99 04/02/25 20:28 O2 Del Method Room Air 04/02/25 20:28 BMI result Body Mass Index 26.7 Medical Decision Making Medical Decision Making MDM Narrative: This is a [id number]-female, with no known medical problems, who presents to the ER with complaints of toe pain since last night. reports she stubbed her toe last night. Went to and was told her fifth toe is dislocated and was told to go to a specialist who her insurance does not cover. Pt in a post op shoe and katlin taped. Xrays repeated today which reveal no dislocation or fracture. Katlin taped toe, she already has a post op shoe. Advised RICE techniques, given return precautions. Will f/u with ortho as needed. Pt stable for d.c Differential Diagnosis Differential Diagnoses: The differential diagnosis associated with the presentation includes fx, dislocation, contusion, strain, sprain Radiology Impression Discussion of test interpretation with radiology: I have reviewed the ra diologist's reading. Radiologist Impression: [address] [address] XRay Report Signed Patient: Tressa Godoy MR#: [id number] : 1995 Acct:[id number] Age/Sex: 29 / F ADM Date: 04/02/25 Loc: HO.ED Attending Dr: Ordering Physician: Bela Guzman Date of Service: 04/02/25 Procedure(s): XR foot LT min 3V Accession Number(s): [id number] cc: Physician,None ; Bela Guzman~ CLINICAL HISTORY: fifth toe pain, ?dislocated 4 view left foot Comparison: None provided Findings: No fractures or dislocations. No significant arthritic change or erosions. No ankle effusion. No radiopaque foreign body. IMPRESSION: 1. No acute findings. This document has been electronically signed by: Kimmie Weaver MD on 04/02/2025 19:47:21 Dictated By: Kimmie Weaver MD Discharge Plan Discharge Clinical Impression: Contusion of fifth toe Patient Disposition: Home, Self-Care Instructions: Foot Contusion (ED) Additional Instructions: You were seen in the emergency department after injuring your toe. Your x-ray today does not show a dislocation or a fracture. There may be a small fracture that is not detected by the radiologist. Please ice, rest, and elevate your foot. Alternate between ibuprofen and Tylenol as needed for pain and symptoms. Please follow-up with the psychiatric clinical nurse specialist, call tomorrow to make an appointment. Prescriptions: No Action loperamide [Imodium A-D] 2 mg tablet 2 mg PO Q6H PRN (Reason: loose stool) Qty: 14 0RF ondansetron 4 mg tablet,disintegrating 4 mg PO Q6-8H PRN (Reason: nausea and vomiting) Qty: 7 0RF Referrals: [facility] [Provider Group] Interventions: ED Discharge Assessment Last Done: 04/02/25 20:28 Discharge Date/Time: 04/02/25 20:28 Print Language: Korean
--- NOTE | 2025-04-02 20:09 | PC.NURSE ---
John-taped toes (4th & 5th) on left foot. Patient already has supportive boot in place.
--- OUTSIDE RECORDS SUMMARY | 2025-04-02 20:16 | XMS_ITS | Clinical Summary ---
Author Organization [facility] Address [address] [place] [address] Care Team Providers Care Construction Equipment Operator Name Role Phone Unavailable Primary Care Provider Unavailabl e Surgical History Surgery Date Site/Laterality Comments APPENDECTOMY PROCEDURE: HISTORICAL APPENDECTOMY Medical History Medical History Date Comments Patient denies medical problems DX:Patient denies medical problems Family History Relation Name Status Comments Father Alive Mother Alive Social History Tobacco Use Types Packs/Day Years Used Date Smoking Tobacco: Never Smokeless Tobacco: Never Alcohol Use Standard Drinks/Week Comments Not Currently 0 (1 standard drink = 0.6 oz pur e alcohol) Comments Unknown Sex and Gender Information Value Date Recorded Sex Assigned at Not on file Legal Sex Female 8:44 AM EST Gender Identity Not on file Sexual Orientation Not on file Obstetrics History Plan of Treatment Health Maintenance Due Date Last Done Comments DTaP,Tdap,and Td Vaccines (1 - Tdap) 2014 Hepatitis B Vaccines (1 of 3 - 19+ 3-dose series) 2014 Cervical Cancer Screening: P ap Smear 2016 COVID-19 Vaccine ( - 2023-2 5 season) 2024 HIV Screening 05/14/2024 Hepatitis C Screening 05/14/2024 Social Influencers of Health Screening 05/14/2024 Depression Screening 08/07/2024 Influenza Vaccine (#1) 2025 HIB Vaccines Aged Out No longer eligi ble based on patient's age to complete this topic HPV Vaccines Aged Out No longer eligi ble based on patient's age to complete this topic Hepatitis A Vaccines Aged Out No long er eligible based on patient's age to complete this topic IPV Vaccines Aged Out No longer eligi ble based on patient's age to complete this topic MMR Vaccines Aged Out No longer eligi ble based on patient's age to complete this topic Meningococcal ACWY Vaccine Aged Out N o longer eligible based on patient's age to complete this topic Meningococcal B Vaccine Aged Out No l onger eligible based on patient's age to complete this topic Pneumococcal Vaccine: Pediat rics (0 to 5 Years) and At-Risk Patients (6 to 49 Years) Aged Out No longer eligible b ased on patient's age to complete this topic RSV Immunization Patients Un bethany 20 months Aged Out No longer eligible b ased on patient's age to complete this topic Varicella Vaccines Aged Out No longer eligible based on patient's age to complete this topic
--- OUTSIDE RECORDS SUMMARY | 2025-04-02 20:16 | XMS_ITS | Clinical Summary ---
Author Organization [facility] Address [address] [place] [phone] Phone Care Team Providers Care Veterinary Assistant Technician Name Role Phone Pcp, Unknown Primary Care Provider Unavailabl e Allergies Active Allergy Reactions Criticality Noted Date Comments Famotidine Shortness Of Breath High 11/20/2024 Throat closes up Medications No known medications Active Problems No known active problems Encounters Date Type Department Care Team Description 04/02/2025 3:44 PM EDT Hospital Encounter [facility] [address] [place] [id number] Hollie Trevino CNP Arrived 04/02/2025 3:30 PM EDT Office Visit [facility] at [address] [address] Hollie Trevino CNP Left foot pain (Primary Dx); Toe dislocation, left, initial encounter from Last 3 Months Social History Tobacco Use Types Packs/Day Years [...] on file Sexual Orientation Not on file Last Filed Vital Signs Vital Sign Reading Time Taken Comments Blood Pressure 110/63 04/02/2025 3:33 PM EDT Pulse 68 04/02/2025 3:33 PM EDT Temperature 36.3 C (97.3 F) 04/02/2025 3:33 PM EDT Respiratory Rate 16 04/02/2025 3:33 PM EDT Oxygen Saturation 99% 04/02/2025 3:33 PM EDT Inhaled Oxygen Concentration - - Weight - - Height - - Body Mass Index - - Plan of Treatment Health Maintenance Due Date Last Done Comments Adult Td,Tdap Booster 1995 DEPRESSION SCREENING 2007 SMOKING Hx and SMOKELESS TOB ACCO SCREENING 2008 HEPATITIS C SCREENING 2013 HIV ONE-TIME SCREENING (18-6 5 YEARS) 2013 PAP SMEAR 2016 COVID-19 VACCINE (2023-2 5 season) 2024 INFLUENZA VACCINE (#1) 2025 HEPATITIS A VACCINES Aged Out No long er eligible based on patient's age to complete this topic HIB VACCINES Aged Out No longer eligi ble based on patient's age to complete this topic MENINGOCOCCAL VACCINES (ACWY) Aged Out No longer eligible based on patient's age to complete this topic MENINGOCOCCAL VACCINES (B) Aged Out N o longer eligible based on patient's age to complete this topic PNEUMOCOCCAL VACCINES (0-49 years) Aged Out No longer eligible based on patient's age to complete this topic Medical Devices Not on file Procedures Procedure Name Priority Date/Time Associated Diagnosis Comments XR FOOT 3 OR MORE VIEWS (LEFT) Urgent/patient waiting 04/02/2025 3:50 PM EDT Left foot pain from Last 3 Months Results * XR FOOT 3 OR MORE [...] clinician's provided indication for this examination in Epic: 29 years Female presenting with Trauma; Jammed 3rd, 4th and 5th toes into stroller last evening, pain in the toes as well as on top of foot Comparison: None Procedure Note See Fernandez MD - 04/02/2025 Procedure: XR FOOT 3 OR MORE VIEWS (LEFT) Referring clinician's provided indication for this examination in Epic: 29years Female presenting with Trauma; Jammed 3rd, 4th and 5th toes intostroller last evening, pain in the toes as well as on top of foot Comparison: None IMPRESSION: FINDINGS/IMPRESSION: No acute displaced fracture or dislocation. Joint spaces are grossly maintained. Alignments are grossly maintained. The soft tissues are unremarkable. Hollie Trevino HOME HEALTH OCCUPATIONAL THERAPIST IMG XR LOWER EXTREMITY Florecita l Result from Last 3 Months Insurance [employer] [facility] Care Teams Veterinary Assistant Technician Relationship Specialty Start Date End Date Pcp, Unknown PCP - General 04/02/25 Additional Source Comments The information contained in this document represents components of the legal health record. It is not the complete legal health record.[facility]
[2025-04-02 20:28] VITALS: BP 100/70; PULSE 84; RESP 18; TEMP 36.8; O2SAT 99
== END 2025-04-02 20:28 | disposition home or self-care (01) ==
PROVIDERS: Emergency Provider Emergency Medicine
DX: S90.122A Contusion of left lesser toe(s) without damage to nail, initial encounter (principal); W22.8XXA Striking against or struck by other objects, initial encounter; Y93.9 Activity, unspecified; Y92.9 Unspecified place or not applicable
CPT/HCPCS: 73630; 99282; 99283

== ENCOUNTER → 2025-04-02 19:01 | Outpatient (BNV) | payer OTHER, SELFPAY | PROVIDERS: Visit Provider Radiology Diagnostic Radiology | DX: M79.675 Pain in left toe(s) (principal) | CPT/HCPCS: 73630 ==

== ENCOUNTER 2025-04-22 09:12 | Outpatient (AMB) | payer OTHER, SELFPAY ==
--- OUTSIDE RECORDS SUMMARY | 2024-11-20 14:10 | XMS_ITS | Encounter Summary ---
Author Organization [facility] Address [address] [place] [phone] Phone Care Team Providers Care Pole Maker Name Role Phone Neelima Lester DIRECTOR [employer] Primary Care Provid er Encounter Details Date Type Department Care Team (Late st Contact Info) Description 11/20/2024 2:10 PM EDT Hospital Encounter [facility] [address] [place] [phone] Hollie Trevino CNP [address] [place] [phone] Social History Tobacco Use Types Packs/Day Years Used Date Smoking Tobacco: Never Assessed Education Answer Date Recorded Are you interested in more education? Not on jaci e 11/20/2024 Are you concerned about learning? Not on file 11/20/2024 No 11/20/2024 No 11/20/2024 Digital Access Answer Date Recorded No 11/20/2024 No 11/20/2024 Reliable internet access at home? Not on file 11/20/2024 Device with a working camera? Not on file Comments Unknown Sex and Gender Information Value Date Recorded Sex Assigned at Not on file Legal Sex Female 1:13 PM EDT Gender Identity Not on file Sexual Orientation Not on file documented as of this encounter Plan of Treatment Not on file documented as of this encounter Procedures Procedure Name Priority Date/Time Associated Diagnosis Comments XR FOOT 3 OR MORE VIEWS (RIGHT) Urgent/patient waiting 11/20/2024 2:16 PM EDT Right foot pain documented in this encounter Results * XR FOOT 3 OR MORE VIEWS (RIGHT) (11/20/2024 2:16 PM EDT) Anatomical Region Laterality Modality Foot Right Computed Radiogr aphy 11/20/2024 2:22 PM EDT Impressions 11/20/2024 2:36 PM EDT No fracture or dislocation. ATTESTATION: Claudy Pritchard as teaching physician, have reviewed the images for this case and if necessary edited the report originally created by Ellie Arnett. Narrative 11/20/2024 2:36 PM EDT XR FOOT 3 OR MORE VIEWS (RIGHT) Referring clinician's provided indication for this examination in [facility]: Pain; Trauma; 2 hours [employer] stubbed foot on leg of metal dining chair, 4th and 5th toes ?pain at pinky toe and tip of fifth metatarsal COMPARISON: None FINDINGS: No fracture. Normal alignment. Normal joint spaces. No soft tissue swelling. Procedure Note Claudy Dunn MD, PhD - 11/20/2024 XR FOOT 3 OR MORE VIEWS (RIGHT) Referring clinician's provided indication for this examination in Epic:Pain; Trauma; 2 hours [employer] stubbed foot on leg of metal dining chair, 4thand 5th toes ?pain at pinky toe and tip of fifth metatarsal COMPARISON: None FINDINGS: No fracture. Normal alignment. Normal joint spaces. No soft tissueswelling. IMPRESSION: No fracture or dislocation. ATTESTATION: Claudy Pritchard as teaching physician, have reviewed theimages for this case and if necessary edited the report originally createdby Ellie Arnett. Hollie Trevino SEAMSTRESS FITTER IMG XR LOWER EXTREMITY Florecita l Result documented in this encounter Visit Diagnoses Not on filedocumented in this encounter Care Teams Pole Maker Relationship Specialty Start Date End Date Neelima Lester NP [address] [place] [phone] [email or web address] PCP - General Nurse Practitioner 11/20/24 04/01/25 documented as of this encounter Additional Source Comments The information contained in this document represents components of the legal health record. It is not the complete legal health record.[facility]
--- OUTSIDE RECORDS SUMMARY | 2025-04-02 15:44 | XMS_ITS | Encounter Summary ---
Author Organization [facility] Address [address] [place] [phone] Phone Care Team Providers Care Laborer Gold Leaf Name Role Phone Pcp, Unknown Primary Care Provider Unavailabl e Encounter Details Date Type Department Care Team (Late st Contact Info) Description 04/02/2025 3:44 PM EDT Hospital Encounter [facility] [address] [place] [phone] Hollie Trevino CNP [address] [place] [address] Social History Tobacco Use Types Packs/Day Years [...] clinician's provided indication for this examination in [facility]: 29 years Female presenting with Trauma; Jammed 3rd, 4th and 5th toes into stroller last evening, pain in the toes as well as on top of foot Comparison: None Procedure Note See Fernandez MD - 04/02/2025 Procedure: XR FOOT 3 OR MORE VIEWS (LEFT) Referring clinician's provided indication for this examination in [facility]: 29years Female presenting with Trauma; Jammed 3rd, 4th and 5th toes intostroller last evening, pain in the toes as well as on top of foot Comparison: None IMPRESSION: FINDINGS/IMPRESSION: No acute displaced fracture or dislocation. Joint spaces are grossly maintained. Alignments are grossly maintained. The soft tissues are unremarkable. Hollie Trevino BALLISTICS EXPERT FORENSIC IMG XR LOWER EXTREMITY Florecita l Result documented in this encounter Visit Diagnoses Not on filedocumented in this encounter Care Teams Laborer Gold Leaf Relationship Specialty Start Date End Date Pcp, Unknown PCP - General 04/02/25 documented as of this encounter Additional Source Comments The information contained in this document represents components of the legal health record. It is not the complete legal health record.[facility]
--- NOTE | 2025-04-22 09:14 | MHC.OFFVIS ---
Vital Signs 04/22/25 09:18 Height 5 ft 3 in Weight 135 lb BMI 23.9 Intake Visit Reasons: Lt foot toe contusion Intake Note: Tressa is a 29 year old female who presents to the office today as a new patient referred by [facility]. Pt reports 5th toe pain after stubbing it. She went to an urgent care where she had x-rays performed and was told it was dislocated. Pt now reports her toe is doing alot better and she curently has no pain. Allergies famotidine (From PEPCID) Allergy (Intermediate, Verified 04/22/25 09:16) DIFFICULTY BREATHING HPI Comments Details: The patient is a 29-year-old female with a past medical history as seen below presenting to the office with a left 5th toe dislocation and associated pain. The patient reports that the toe was initially dislocated and she has been experiencing pain primarily when the toe is stubbed or hit. Patient states she frequently stubbed her toes. She has visited the hospital twice due to severe pain in the left 5th toe, which was initially thought to be sprained. X-rays were performed, showing no fractures, but dislocation of the left 5th distal phalanx was noted. The patient states the dislocated 5th toe was reduced and katlin splinted. Patient states today she has intermittent mild pain, worsened upon stubbing the toe or certain times of ambulation. She denies any radiation of pain. Patient is no longer using katlin splint. She denies any other pedal concerns at this time. Patient seen wearing sandals. [facility], [facility] Medical History (Updated 04/22/25 @ 09:35 by Eli Lim DPM) Toe pain, left Dislocation of fifth toe, left, closed No known health problems Social History Alcohol intake: never Review of Systems Const Details: - Musculoskeletal: Reports intermittent mild pain to the left 5th toe, worsened when stubbed. All systems reviewed & are unremarkable except as noted in HPI and below Physical Exam Vital Signs: BMI result Body Mass Index 23.9 Extrem Other: Left lower extremity focused physical exam: Derm: No open lesions abrasions or wounds noted. No ecchymosis noted or edema noted. No clinical signs of infection noted. Toenails X 10 noted to be within normal limits. Vascular: DP/PT pulses palpable. Capillary refill time less than 3 seconds. Temperature gradient warm to warm. Neuro: Protective sensation is grossly intact. MSK: Left 5th toe noted to be in good alignment. No pain with range of motion of the 5th toe. Range of motion of the remaining toes within normal limits. No crepitus noted. Nonantalgic gait unassisted. Ankle/foot/toe images:  1. Results Reviewed Results Reviewed: Podiatry read of left foot x-rays (04/02/2025): Slight plantar dislocation of the 5th distal phalanx. No acute fractures noted. Left foot x-rays (04/02/2025): Findings: No fractures or dislocations. No significant arthritic change or erosions. No ankle effusion. No radiopaque foreign body. IMPRESSION: 1. No acute findings. Assessment & Plan Assessment & Plan (1) Contusion of fifth toe: Code(s): S90.129A - Contusion of unspecified lesser toe(s) without damage to nail, initial encounter Category: Medical (2) Dislocation of fifth toe, left, closed: Code(s): S93.105A - Unspecified dislocation of left toe(s), initial encounter Category: Medical Qualifiers: Encounter type: initial encounter Qualified Code(s): S93.105A - Unspecified dislocation of left toe(s), initial encounter (3) Toe pain, left: Code(s): M79.675 - Pain in left toe(s) Category: Medical Plan Patient was informed and verbally consented to the use of an ambient scribe for clinic note documentation during this visit. I discussed with the patient that the x-rays showed no fractures and the alignment of the toe is good despite the previous dislocation. I advised wearing solid sneakers to prevent further dislocation and to katlin splint/tape the toe if it is stubbed again. I also explained that due to the dislocation, there might be occasional pain due to arthritis forming in the joint. 1. Toe Dislocation - Continue monitoring for pain and dislocation. - Wear solid sneakers to prevent further dislocation. - Tape the toe if stubbed to maintain alignment. 2. Arthritis In The Toe Joint - Monitor for pain and manage with supportive footwear. - Consider further evaluation if pain persists or worsens. Patient may continue to be weight-bearing as tolerated. Patient may return to the office as needed. Medications: Discontinued ondansetron Discontinued Reason: Patient no longer taking 4 mg PO Q6-8H PRN 7 tabs 0RF nausea and vomiting loperamide (Imodium A-D) Discontinued Reason: Patient no longer taking 2 mg PO Q6H PRN 14 tabs 0RF loose stool Coding Level of Care Code New Pt Level 3 (28540) Diagnoses Contusion of fifth toe S90.129A Closed dislocation of fifth toe of left foot, initial encounter S93.105A Encounter type: initial encounter Toe pain, left M79.675 Time Spent (min) 45
[2025-04-22 09:18] VITALS: BMI 23.9
--- OUTSIDE RECORDS SUMMARY | 2025-04-22 11:31 | XMS_ITS | Clinical Summary ---
Author Organization [facility] Address [address] [place] [address] Care Team Providers Care Grape Pruner Name Role Phone Unavailable Primary Care Provider [...] Cervical Cancer Screening: P ap Smear 2016 HIV Screening 05/14/2024 Hepatitis C Screening 05/14/2024 Social Influencers of Health Screening 05/14/2024 Depression Screening 08/07/2024 COVID-19 Vaccine ( - 2023-2 5 season) 2025 Influenza Vaccine (#1) 2025 HIB Vaccines Aged [...]
--- OUTSIDE RECORDS SUMMARY | 2025-04-22 11:31 | XMS_ITS | Clinical Summary ---
Author Organization [facility] Address [address] [place] [phone] Phone Care Team Providers Care Senior Production Supervisor Name Role Phone Pcp, Unknown Primary Care Provider Unavailabl e Allergies Active Allergy Reactions Criticality Noted Date Comments Famotidine Shortness Of Breath High 11/20/2024 Throat closes up Medications No known medications Active Problems No known active problems Encounters Date Type Department Care Team Description 04/02/2025 3:44 PM EDT Hospital Encounter [facility] [address] [place] [id number] Hollie Trevino CNP 04/02/2025 3:30 PM EDT Office Visit [facility] at [address] [address] Hollie Trevino CNP Left foot pain (Primary [...] (18-6 5 YEARS) 2013 PAP SMEAR 2016 INFLUENZA VACCINE (#1) 2025 COVID-19 VACCINE (2023-2 5 season) 2025 HEPATITIS A VACCINES Aged Out No [...] clinician's provided indication for [facility]: 29years Female presenting with Trauma; Jammed 3rd, 4th and 5th toes intostroller last evening, pain in the toes as well as on top of foot Comparison: None IMPRESSION: FINDINGS/IMPRESSION: No acute displaced fracture or dislocation. Joint spaces are grossly maintained. Alignments are grossly maintained. The soft tissues are unremarkable. Hollie Trevino MANAGER TALENT ACQUISITION IMG XR LOWER EXTREMITY Florecita l Result from Last 3 Months Insurance [email or web address] [facility] [employer] Care Teams Senior Production Supervisor Relationship Specialty Start Date End Date Pcp, Unknown PCP - General 04/02/25 Additional Source Comments The information contained in this document represents components of the legal health record. It is not the complete legal health record.[facility]
== END 2025-04-22 09:34 | disposition home or self-care (01) ==
LOC: HO.HPODS 09:12
PROVIDERS: Visit Provider Student in an Organized Health Care Education/Training Program
DX: S90.129A Contusion of unspecified lesser toe(s) without damage to nail, initial encounter (principal); S93.105A Unspecified dislocation of left toe(s), initial encounter; M79.675 Pain in left toe(s)
CPT/HCPCS: 99203

== ENCOUNTER → 2025-04-22 09:12 | Outpatient (BNVA) | payer OTHER, SELFPAY | PROVIDERS: Visit Provider Student in an Organized Health Care Education/Training Program | DX: S93.105A Unspecified dislocation of left toe(s), initial encounter (principal); S90.122A Contusion of left lesser toe(s) without damage to nail, initial encounter; M79.675 Pain in left toe(s); W22.09XA Striking against other stationary object, initial encounter; Y93.9 Activity, unspecified; Y92.9 Unspecified place or not applicable; Y99.9 Unspecified external cause status | CPT/HCPCS: 99202 ==